=== PATIENT | male | born 1955 | race Caucasian/White ===

== ENCOUNTER 2021-05-02 14:18 | Emergency (ER) | payer MEDICARE, OTHER ==
[2021-05-02] MEDS ORDERED: Acetaminophen 325 MG Tab PO PRN (15:32)
--- NOTE | 2021-05-02 15:34 | EDM.PDOC ---
ED HPI GENERAL MEDICAL PROBLEM - General Chief Complaint: Respiratory Problem Stated Complaint: COVID Time Seen by Provider: 05/02/21 14:49 Source of Information: Reports: Patient, RN Notes Reviewed History Limitations: Reports: No Limitations - History of Present Illness INITIAL COMMENTS - FREE TEXT/NARRATIVE: 66-year-old gentleman presents emergency department day complaint of shortness of breath, he was recently diagnosed with COVID-19 about 1 week ago he has had monoclonal antibody therapy treatment, he has been treated with dexamethasone as outpatient he is also been treated with ivermectin. He states he does have home oxygen at home that he is gotten for this recent illness as well as an O2 saturation monitor. He states his O2 saturation has been in the low 80s at home. - Related Data Allergies Allergy/AdvReac Type Severity Reaction Status Date / Time No Known Allergies Allergy Verified 05/02/21 14:20 Home Meds: Home Meds Ascorbate Calcium [Vitamin C] 1 tab PO DAILY 06/26/18 [History] Levothyroxine [Synthroid] 88 mcg PO DAILY 06/26/18 [History] Herreid-3S/DHA/Epa/Fish Oil/D3 [Fish Gcl-Vlhde-3-Vit D Softgel] 600 mg PO DAILY 06/26/18 [History] Selenium 200 mcg PO DAILY 06/26/18 [History] Vitamin B Complex 1 cap PO DAILY 06/26/18 [History] lisinopriL [Prinivil] 20 mg PO DAILY 06/26/18 [History] Aspirin [Halfprin] 81 mg PO DAILY 05/02/21 [History] Cholecalciferol (Vitamin D3) [Vitamin D] 5,000 unit PO DAILY 05/02/21 [History] Ivermectin 3 mg PO DAILY 05/02/21 [History] atorvaSTATin Calcium [Atorvastatin Calcium] 1 tab PO DAILY 05/02/21 [History] hydroCHLOROthiazide [Hydrochlorothiazide] 25 mg PO DAILY 05/02/21 [History] Past Medical History HEENT History: Reports: Impaired Vision Cardiovascular History: Reports: High Cholesterol, Hypertension Gastrointestinal History: Reports: Other (See Below) Other Gastrointestinal History: hernia - Infectious Disease History Infectious Disease History: Reports: Chicken Pox, Novel Coronavirus - Past Surgical History Head Surgeries/Procedures: Reports: None HEENT Surgical History: Reports: None Cardiovascular Surgical History: Reports: Valve Replacement GI Surgical History: Reports: None Dermatological Surgical History: Reports: None Social & Family History - Tobacco Use Tobacco Use Status *Q: Former Tobacco User Used Tobacco, but Quit: Yes Month/Year Tobacco Last Used: 04/2021 Second Hand Smoke Exposure: Yes - Caffeine Use Caffeine Use: Reports: None - Alcohol Use Days Per Week of Alcohol Use: 7 Number of Drinks Per Day: 2 Total Drinks Per Week: 14 - Recreational Drug Use Recreational Drug Use: No ED ROS GENERAL - Review of Systems Review Of Systems: See Below Constitutional: Reports: Fever, Chills, Weakness, Fatigue HEENT: Reports: No Symptoms Respiratory: Reports: Shortness of Breath Cardiovascular: Reports: Dyspnea on Exertion GI/Abdominal: Reports: No Symptoms ED EXAM, GENERAL - Physical Exam Exam: See Below Exam Limited By: No Limitations General Appearance: Alert, WD/WN, No Apparent Distress Respiratory/Chest: No Respiratory Distress, No Accessory Muscle Use, Chest Non- Tender, Crackles Cardiovascular: Regular Rate, Rhythm, No Murmur GI/Abdominal: Soft, Tender Course - Vital Signs Last Recorded V/S: Last Vital Signs Temp 97.1 F 05/02/21 14:33 Pulse 50 L 05/02/21 16:58 Resp 14 05/02/21 16:58 BP 134/43 L 05/02/21 16:58 Pulse Ox 91 L 05/02/21 16:58 - Orders/Labs/Meds Orders: Active Orders 24 hr Category Date Time Status Chest 1V Frontal [CR] Stat Exams 05/02/21 15:32 Taken Acetaminophen [TylenoL] Med 05/02/21 15:32 Active 650 mg PO Q4H PRN Isolation [COMM] Stat Oth 05/02/21 15:32 Ordered Medication Orders Acetaminophen (Acetaminophen 325 Mg Tab) 650 mg PO Q4H PRN PRN Reason: Fever Greater Than 101 Labs: Laboratory Tests 05/02/21 05/02/21 05/02/21 Range/Units 15:55 15:55 15:55 WBC 22.4 H (4.5-11.0) K/uL RBC 4.03 L (4.30-5.90) M/uL Hgb 13.0 (12.0-15.0) g/dL Hct 38.9 L (40.0-54.0) % MCV 97 (80-98) fL MCH 32 H (27-31) pg MCHC 33 (32-36) % Plt Count 431 H (150-400) K/uL Add Manual Diff Yes Neutrophils % (Manual) 76 H (36-66) % Band Neutrophils % 3 L (5-11) % Lymphocytes % (Manual) 8 L (24-44) % Monocytes % (Manual) 12 H (2-6) % Blast Cells % 1 % Sodium 136 L (140-148) mmol/L Potassium 5.8 H (3.6-5.2) mmol/L Chloride 103 (100-108) mmol/L Carbon Dioxide 22 (21-32) mmol/L Anion Gap 16.8 H (5.0-14.0) mmol/L BUN 72 H (7-18) mg/dL Creatinine 1.6 H (0.8-1.3) mg/dL Est Cr Clr Drug Dosing 44.19 mL/min Estimated GFR (MDRD) 43 L (>60) Glucose 95 (74-106) mg/dL Lactic Acid 1.6 (0.4-2.0) mmol/L Calcium 9.0 (8.5-10.1) mg/dL Total Bilirubin 0.7 (0.2-1.0) mg/dL Direct Bilirubin 0.15 (0.0-0.2) mg/dL Indirect Bilirubin 0.55 AST 40 H (15-37) U/L ALT 91 H (12-78) U/L Alkaline Phosphatase 62 (46-116) U/L C-Reactive Protein 2.79 H (0.0-0.3) mg/dL Total Protein 6.5 (6.4-8.2) g/dL Albumin 3.0 L (3.4-5.0) g/dL Globulin 3.5 (2.3-3.5) g/dL Albumin/Globulin Ratio 0.9 L (1.2-2.2) Procalcitonin ng/mL 05/02/21 Range/Units 15:55 WBC (4.5-11.0) K/uL RBC (4.30-5.90) M/uL Hgb (12.0-15.0) g/dL Hct (40.0-54.0) % MCV (80-98) fL MCH (27-31) pg MCHC (32-36) % Plt Count (150-400) K/uL Add Manual Diff Neutrophils % (Manual) (36-66) % Band Neutrophils % (5-11) % Lymphocytes % (Manual) (24-44) % Monocytes % (Manual) (2-6) % Blast Cells % % Sodium (140-148) mmol/L Potassium (3.6-5.2) mmol/L Chloride (100-108) mmol/L Carbon Dioxide (21-32) mmol/L Anion Gap (5.0-14.0) mmol/L BUN (7-18) mg/dL Creatinine (0.8-1.3) mg/dL Est Cr Clr Drug Dosing mL/min Estimated GFR (MDRD) (>60) Glucose (74-106) mg/dL Lactic Acid (0.4-2.0) mmol/L Calcium (8.5-10.1) mg/dL Total Bilirubin (0.2-1.0) mg/dL Direct Bilirubin (0.0-0.2) mg/dL Indirect Bilirubin AST (15-37) U/L ALT (12-78) U/L Alkaline Phosphatase (46-116) U/L C-Reactive Protein (0.0-0.3) mg/dL Total Protein (6.4-8.2) g/dL Albumin (3.4-5.0) g/dL Globulin (2.3-3.5) g/dL Albumin/Globulin Ratio (1.2-2.2) Procalcitonin < 0.05 ng/mL Meds: Medications Generic Name Dose Route Start Last Admin Trade Name Freq PRN Reason Stop Dose Admin Acetaminophen 650 mg 05/02/21 15:32 Acetaminophen 325 Mg Tab PO Q4H PRN Fever Greater Than 101 Departure - Departure Time of Disposition: 17:35 Disposition: Home, Self-Care 01 Condition: Fair Clinical Impression: COVID-19 - Discharge Information Instructions: 10 Things You Can Do to Manage Your COVID-19 Symptoms at Home - CDC (01/29/2021) Referrals: PCP,None [Primary Care Provider] - Forms: ED Department Discharge Additional Instructions: Continue with your current medications, continue with symptomatic care, please followup with your primary care provider in 3-5 days if not better, please call return to the emergency department with worsening of symptoms. Sepsis Event Note (ED) - Focused Exam Vital Signs: Vital Signs Temp Pulse Resp BP Pulse Ox 05/02/21 16:58 50 L 14 134/43 L 91 L 05/02/21 15:52 56 L 22 H 138/54 L 90 L 05/02/21 15:18 51 L 16 124/54 L 92 L 05/02/21 14:54 51 L 20 119/52 L 93 L 05/02/21 14:33 97.1 F 58 L 17 151/52 H 92 L 05/02/21 14:27 97.1 F 58 L 17 151/52 H 92 L - My Orders Last 24 Hours: My Active Orders 05/02/21 15:32 Chest 1V Frontal [CR] Stat Acetaminophen [TylenoL] 650 mg PO Q4H PRN Isolation [COMM] Stat - Assessment/Plan Last 24 Hours: My Active Orders 05/02/21 15:32 Chest 1V Frontal [CR] Stat Acetaminophen [TylenoL] 650 mg PO Q4H PRN Isolation [COMM] Stat Plan: Assessment Acuity = acute Site and laterality = viral syndrome Etiology = COVID-19 Manifestations = none Location of injury = Home Lab values = WBC elevated 22.4 consistent with leukocytosis, potassium slightly elevated 5.8 consistent with hyperkalemia creatinine elevated 1.6 consistent with acute renal failure stage G3 B CRP slightly elevated 2.7 procalcitonin was negative chest x-ray shows Covid-like syndrome Plan Called discussed case Dr. Garcia his primary care physician at 1730 recommended sending him home no change in current medications Dr. Garica will follow up with This note was dictated using [employer] voice recognition software please call with any questions on syntax or grammar.
--- NOTE | 2021-05-03 10:26 | CR ---
CHEST: Portable 05/02/2021 at 3:48 PM CLINICAL HISTORY:Respiratory failure COMPARISON:None FINDINGS: There is patchy infiltrate in the right upper lobe and left lower lobe with some scattered groundglass opacities in the right. There are no effusions Impression: Bilateral infiltrates suggesting pneumonitis
== END 2021-05-02 17:51 | disposition home or self-care (01) ==
LOC: JP.ED 14:18
DX: U07.1 COVID-19 (principal); E78.00 Pure hypercholesterolemia, unspecified; I10 Essential (primary) hypertension; Z79.82 Long term (current) use of aspirin; Z79.899 Other long term (current) drug therapy; Z87.891 Personal history of nicotine dependence
CPT/HCPCS: 36415; 71045; 71045-26; 80048; 80076; 83605; 84145; 85025; 86140; 99285-25

== ENCOUNTER 2023-11-04 22:09 | Inpatient (IN) | payer MEDICARE, OTHER ==
[2023-11-05 00:06] LABS: HEMOGLOBIN 9.5 g/dL (12.9-16.9); PROTHROMBIN TIME 9.7 sec (9.2-10.6); WHITE BLOOD CELL COUNT,WBC 15.3 K/uL (3.2-11.0)
[2023-11-05 00:07] LABS: PLATELET COUNT,PLT 105 K/uL (130-375)
[2023-11-05 00:08] LABS: LYMPHOCYTES PERCENT MAN 15 % (24-44); MONOCYTES ABSOLUTE MAN 1.22 K/uL (0.20-0.90); MONOCYTES PERCENT MAN 8 % (2-6); NEUTROPHILS ABSOLUTE MAN 11.78 K/uL (1.0-7.6); SEG NEUTROPHILS PERCENT MAN 77 % (36-66)
[2023-11-05] MEDS: Pantoprazole 40 MG Vial IVPUSH ONE (00:10)
[2023-11-05 00:11] LABS: A/G RATIO 1.1 (1.2-2.2); ALANINE AMINOTRANSFERASE,ALT 40 U/L (12-78); ALBUMIN 3.3 g/dL (3.4-5.0); ALKALINE PHOSPHATASE 46 U/L (46-116); ASPARTATE AMNIOTRANSFERASE,AST 23 U/L (15-37); BILIRUBIN TOTAL 0.6 mg/dL (0.2-1.0); CARBON DIOXIDE,CO2 19 mmol/L (21-32); CHLORIDE,CL 102 mmol/L (100-108); CREATININE 2.2 mg/dL (0.8-1.3); EST CRCL DRUG DOSING (CG) 31.24 mL/min; ESTIMATED GFR 31 mL/min (>60); GLUCOSE RANDOM 106 mg/dL (74-106); POTASSIUM,K 4.3 mmol/L (3.6-5.2); PROTEIN TOTAL,TP 6.3 g/dL (6.4-8.2); SODIUM,NA 136 mmol/L (140-148)
[2023-11-05 00:13] LABS: ANION GAP 19.3 mmol/L (5.0-14.0); BLOOD UREA NITROGEN,BUN 103 mg/dL (7-18)
[2023-11-05 00:28] LABS: CORONAVIRUS COVID-19 NAA NEGATIVE (NEGATIVE); INFLUENZA A NAA NEGATIVE (NEGATIVE); INFLUENZA B NAA NEGATIVE (NEGATIVE); RESPIRATORY SYNCYTIAL VIR NAA NEGATIVE (NEGATIVE)
[2023-11-05] MEDS: Sodium Chloride 0.9% 1,000 ML IV SCH ×2 (00:39→02:45)
[2023-11-05 06:44] LABS: HEMOGLOBIN 7.6 g/dL (12.9-16.9)
[2023-11-05 06:45] LABS: PLATELET COUNT,PLT 260 K/uL (130-375)
[2023-11-05 06:46] LABS: BAND PERCENT MAN 2 % (5-11); BASOPHILS PERCENT MAN 0 % (0-1); EOSINOPHILS PERCENT MAN 1 % (2-4); LYMPHOCYTES PERCENT MAN 31 % (24-44); MONOCYTES PERCENT MAN 12 % (2-6); SEG NEUTROPHILS PERCENT MAN 54 % (36-66)
[2023-11-05] MEDS: Pantoprazole 40 MG Tab.CR PO SCH (08:15)
[2023-11-05] MEDS: Levothyroxine 88 MCG Tab PO SCH (08:15)
[2023-11-05 12:24] LABS: HEMOGLOBIN 7.6 g/dL (12.9-16.9)
[2023-11-05 12:34] LABS: WHITE BLOOD CELL COUNT,WBC 14.4 K/uL (3.2-11.0)
[2023-11-05 12:52] LABS: WHITE BLOOD CELL COUNT,WBC 12.6 K/uL (3.2-11.0)
[2023-11-05 20:23] LABS: HEMOGLOBIN 7.4 g/dL (12.9-16.9); WHITE BLOOD CELL COUNT,WBC 13.8 K/uL (3.2-11.0)
[2023-11-06 05:54] LABS: A/G RATIO 1.1 (1.2-2.2); ALANINE AMINOTRANSFERASE,ALT 37 U/L (12-78); ALBUMIN 2.8 g/dL (3.4-5.0); ALKALINE PHOSPHATASE 39 U/L (46-116); ANION GAP 8.6 mmol/L (5.0-14.0); ASPARTATE AMNIOTRANSFERASE,AST 23 U/L (15-37); BILIRUBIN TOTAL 0.7 mg/dL (0.2-1.0); BLOOD UREA NITROGEN,BUN 68 mg/dL (7-18); CALCIUM 8.8 mg/dL (8.5-10.1); CARBON DIOXIDE,CO2 23 mmol/L (21-32); CHLORIDE,CL 108 mmol/L (100-108); CREATININE 1.7 mg/dL (0.8-1.3); EST CRCL DRUG DOSING (CG) 40.43 mL/min; ESTIMATED GFR 43 mL/min (>60); GLUCOSE RANDOM 112 mg/dL (74-106); POTASSIUM,K 5.2 mmol/L (3.6-5.2); PROTEIN TOTAL,TP 5.3 g/dL (6.4-8.2); SODIUM,NA 140 mmol/L (140-148)
[2023-11-06 05:57] LABS: HEMOGLOBIN 7.7 g/dL (12.9-16.9); WHITE BLOOD CELL COUNT,WBC 11.7 K/uL (3.2-11.0)
[2023-11-06 13:19] LABS: RETICULOCYTE COUNT PERCENT 3.24 % (0.03-0.11)
[2023-11-06] MEDS ORDERED: fentaNYL 100 MCG/2 ML SDV ONE (13:46)
[2023-11-06] MEDS ORDERED: Propofol 200 MG/20 ML SDV ONE (13:46)
[2023-11-07 05:31] LABS: BASOPHILS ABSOLUTE AUTO 0.07 K/uL (0.00-0.10); EOSINOPHILS ABSOLUTE AUTO 0.37 K/uL (0.00-0.40); HEMATOCRIT 24.3 % (38.4-49.7); HEMOGLOBIN 8.4 g/dL (12.9-16.9); IMMATURE GRAN ABSOLUTE AUTO 0.11 K/uL (0.00-0.23); IMMATURE GRAN PERCENT AUTO 1.5 % (0.0-0.7); LYMPHOCYTES ABSOLUTE AUTO 2.06 K/uL (0.8-3.3); MEAN CORPUSCULAR HEMOGLOBIN 32.8 pg (31.6-35.5); MEAN CORPUSCULAR HGB CONC 34.6 g/dL (31.6-35.5); MEAN CORPUSCULAR VOLUME 94.9 fL (81.4-99.0); MONOCYTES PERCENT AUTO 10.9 % (3.3-12.6); NEUTROPHILS ABSOLUTE AUTO 3.95 K/uL (1.0-7.6); NEUTROPHILS PERCENT AUTO 53.6 % (40.0-78.1); PLATELET COUNT,PLT 141 K/uL (130-375); RED BLOOD CELL COUNT 2.56 M/uL (4.14-5.76); WHITE BLOOD CELL COUNT,WBC 7.4 K/uL (3.2-11.0)
[2023-11-07 05:46] LABS: CALCIUM 8.7 mg/dL (8.5-10.1); CREATININE 1.6 mg/dL (0.8-1.3); EST CRCL DRUG DOSING (CG) 42.82 mL/min; POTASSIUM,K 4.8 mmol/L (3.6-5.2)
[2023-11-07 06:01] LABS: ANION GAP 12.8 mmol/L (5.0-14.0)
[2023-11-07] MEDS: Iopamidol 755 Mg/ML 100 ML Bottle IV SCH (10:02)
[2023-11-07] MEDS: Sodium Chloride 0.9% 100 ML IV SCH (10:02)
[2023-11-07] MEDS: Sodium Chloride 0.9% 10 ML Syringe FLUSH PRN (10:02)
[2023-11-07 15:48] LABS: BASOPHILS ABSOLUTE AUTO 0.05 K/uL (0.00-0.10); BASOPHILS PERCENT AUTO 0.6 % (0.1-1.3); EOSINOPHILS PERCENT AUTO 3.5 % (0.0-5.4); HEMATOCRIT 26.7 % (38.4-49.7); HEMOGLOBIN 9.3 g/dL (12.9-16.9); IMMATURE GRAN ABSOLUTE AUTO 0.17 K/uL (0.00-0.23); LYMPHOCYTES PERCENT AUTO 23.2 % (11.4-47.7); MEAN CORPUSCULAR HEMOGLOBIN 32.9 pg (31.6-35.5); MEAN CORPUSCULAR HGB CONC 34.8 g/dL (31.6-35.5); MEAN CORPUSCULAR VOLUME 94.3 fL (81.4-99.0); MONOCYTES ABSOLUTE AUTO 1.18 K/uL (0.20-0.90); MONOCYTES PERCENT AUTO 13.7 % (3.3-12.6); NEUTROPHILS ABSOLUTE AUTO 4.92 K/uL (1.0-7.6); PLATELET COUNT,PLT 159 K/uL (130-375); RED BLOOD CELL COUNT 2.83 M/uL (4.14-5.76); WHITE BLOOD CELL COUNT,WBC 8.6 K/uL (3.2-11.0)
[2023-11-07] MEDS: Polyethylene Glycol 3350 Powder 238 GM Bot PO ONE (16:23)
[2023-11-07] MEDS: Bisacodyl 5 MG Tab PO ONE ×2 (16:23→20:27)
[2023-11-08] MEDS ORDERED: fentaNYL 100 MCG/2 ML SDV ONE (07:27)
[2023-11-08] MEDS ORDERED: Propofol 200 MG/20 ML SDV ONE ×2 (07:27→07:36)
[2023-11-08 09:19] LABS: BASOPHILS ABSOLUTE AUTO 0.04 K/uL (0.00-0.10); BASOPHILS PERCENT AUTO 0.5 % (0.1-1.3); EOSINOPHILS ABSOLUTE AUTO 0.29 K/uL (0.00-0.40); EOSINOPHILS PERCENT AUTO 3.9 % (0.0-5.4); HEMOGLOBIN 8.8 g/dL (12.9-16.9); IMMATURE GRAN ABSOLUTE AUTO 0.13 K/uL (0.00-0.23); IMMATURE GRAN PERCENT AUTO 1.7 % (0.0-0.7); LYMPHOCYTES ABSOLUTE AUTO 1.24 K/uL (0.8-3.3); LYMPHOCYTES PERCENT AUTO 16.6 % (11.4-47.7); MEAN CORPUSCULAR HEMOGLOBIN 32.1 pg (31.6-35.5); MEAN CORPUSCULAR HGB CONC 33.8 g/dL (31.6-35.5); MEAN CORPUSCULAR VOLUME 94.9 fL (81.4-99.0); MONOCYTES PERCENT AUTO 10.7 % (3.3-12.6); NEUTROPHILS ABSOLUTE AUTO 4.97 K/uL (1.0-7.6); NEUTROPHILS PERCENT AUTO 66.6 % (40.0-78.1); PLATELET COUNT,PLT 164 K/uL (130-375); RED BLOOD CELL COUNT 2.74 M/uL (4.14-5.76); WHITE BLOOD CELL COUNT,WBC 7.5 K/uL (3.2-11.0)
[2023-11-08 09:34] LABS: ANION GAP 14.6 mmol/L (5.0-14.0); CREATININE 1.8 mg/dL (0.8-1.3); EST CRCL DRUG DOSING (CG) 38.06 mL/min; POTASSIUM,K 4.6 mmol/L (3.6-5.2)
[2023-11-08 09:58] LABS: RETICULOCYTE COUNT PERCENT 3.48 % (0.03-0.11)
[2023-11-10 12:24] LABS: IRON,FE 58 ug/dL (65-175); PERCENT FE SATURATION 20 % (20-55); TOTAL IRON BINDING CAPACITY 289 ug/dl (250-450)
== END 2023-11-08 13:41 | disposition home or self-care (01) | DRG 811 ==
LOC: JP.ED 22:09 → JP.ICU 11-05 02:08
PROVIDERS: ADMIT Internal Medicine; ATTEND Internal Medicine
PROC: 0DJ08ZZ Inspection of Upper Intestinal Tract, Via Natural or Artificial Opening Endoscopic (ICD-10-PCS; 2023-11-06)
PROC: 30233N1 Transfusion of Nonautologous Red Blood Cells into Peripheral Vein, Percutaneous Approach (ICD-10-PCS; 2023-11-06)
PROC: 0DJD8ZZ Inspection of Lower Intestinal Tract, Via Natural or Artificial Opening Endoscopic (ICD-10-PCS; principal; 2023-11-08 08:45)
DX: K92.2 Gastrointestinal hemorrhage, unspecified (principal); D62 Acute posthemorrhagic anemia; K29.81 Duodenitis with bleeding; I10 Essential (primary) hypertension; E78.00 Pure hypercholesterolemia, unspecified; Z66 Do not resuscitate; E03.9 Hypothyroidism, unspecified; I35.0 Nonrheumatic aortic (valve) stenosis; N18.9 Chronic kidney disease, unspecified; K40.90 Unilateral inguinal hernia, without obstruction or gangrene, not specified as recurrent; F17.210 Nicotine dependence, cigarettes, uncomplicated; Z86.16 Personal history of COVID-19; Z79.899 Other long term (current) drug therapy; Z79.82 Long term (current) use of aspirin; Z79.51 Long term (current) use of inhaled steroids; Z95.3 Presence of xenogenic heart valve; Z85.828 Personal history of other malignant neoplasm of skin
CPT/HCPCS: 0241U; 36415; 36430; 74174; 80048; 80053; 82272; 83550; 83690; 85018; 85025; 85027; 85045; 85610; 86850; 86900; 86901; 86920; 86922; 93005; 96361; 96374; 99232; 99285; A9270-GY; C9113; J2704; J3010; J3490; J7030; P9016; Q9967